=== PATIENT | male | born 1995 | race Asian ===

== ENCOUNTER 2019-11-24 20:43 | Emergency (ER) | payer OTHER ==
[~2019-11-24] VITALS: Ht 185.4 cm; Wt 79.5 kg
[2019-11-24 23:36] VITALS: BP 132/77
== END 2019-11-24 23:55 | disposition home or self-care (01) ==
LOC: EMS 20:45
DX: M25.512 Pain in left shoulder (principal); V49.9XXA Car occupant (driver) (passenger) injured in unspecified traffic accident, initial encounter; Y93.89 Activity, other specified; Y92.89 Other specified places as the place of occurrence of the external cause; Y99.8 Other external cause status
CPT/HCPCS: Z7502